=== PATIENT | male | born 1990 | race Caucasian/White ===

== ENCOUNTER 2023-01-11 14:33 | Emergency (ER) | payer OTHER, SELFPAY ==
[2023-01-11 14:38] VITALS: BP 134/84; PULSE 71; RESP 20; TEMP 36.8; O2SAT 100
--- NOTE | 2023-01-11 14:48 | ED.BACK ---
HPI - Back Pain/Injury General Chief Complaint: Back Pain/Injury Stated Complaint: pain in back shooting to right shoulder Time Seen by Provider: 01/11/23 14:48 History of Present Illness HPI Narrative: patient woke up with muscle strain to right shoulder/muscle. no neck pain full Rom of neck and shoulder. Patient has not taken anything for pain or discomfort. Patient thinks he may have slept wrong last night causing muscle strain. no chest pain no shortness of breath. Related Data Allergies Allergy/AdvReac Type Severity Reaction Status Date / Time No Known Allergies Allergy Unverified 08/28/17 19:34 Review of Systems Review of Systems: CONSTITUTIONAL: Denies fever, chills, or sweats. EYES: Denies visual changes, redness, or discharge. ENT: Denies rhinorrhea, congestion, sore throat, or otalgia. CARDIOVASCULAR: Denies chest pain, palpitations, or edema. RESPIRATORY: Denies cough or dyspnea. GASTROINTESTINAL: Denies abdominal pain, nausea, vomiting, or diarrhea. GENITOURINARY: Denies dysuria or hematuria. SKIN: Denies rash or itching. MUSCULOSKELETAL: Denies back pain, joint pain, or myalgia. NEUROLOGIC: Denies headache, numbness, or weakness. PSYCHIATRIC: Denies anxiety or depression. PMFSH Comments At time of signature, agree with nursing past medical, surgical, social and family history. There is no relevant family history pertinent to the presenting complaint Exam Narrative: GENERAL: Well-appearing, well-nourished, and in no acute distress. HEAD: Normocephalic, atraumatic. EYES: PERRLA and EOMI. ENT: Nares clear, no rhinorrhea or epistaxis. Mucous membranes moist. NECK: Supple. CHEST: Clear to auscultation. No respiratory distress. HEART: Regular rate and rhythm. No murmur heard. Normal peripheral pulses. ABDOMEN: Soft, nontender, nondistended, normal active bowel sounds. EXTREMITIES: Normal range of motion. No edema. T ENTERED EXAM ROOM WITH NO DIFFICULTY WITH AMBULATION. NO SIGNIFICANT RESTRICTIONS WITH FLEXION AND EXTENSION OF BACK. VERTEBRAE/SPINE NONTENDER TO PALPATION, NO STEP OFFS. MOTOR, STRENGTH INTACT. SENSATIONS GROSSLY INTACT OF LE. patient complains of pain below shoulder blade. SKIN: Warm, dry, no rash. NEURO: No focal deficits. Alert and oriented x3. Davida Coma Scale Eye Opening: Spontaneous 4 [place] Coma Scale Motor: Obeys Commands 6 [place] Coma Scale Verbal: Oriented 5 [place] Coma Scale Total 15 Back/Spine/Pelvis: Back: no CVA tenderness Extrem: General: normal to inspection, no clubbing, cyanosis or edema and no pedal edema Course Course Level of Care: Express Care Visit Vital Signs Vital signs: Vital Signs Temperature 36.8 C 01/11/23 14:38 Pulse Rate 71 01/11/23 14:38 Respiratory Rate 20 01/11/23 14:38 Blood Pressure 134/84 01/11/23 14:38 Pulse Oximetry 100 01/11/23 14:38 Oxygen Delivery Room Air 01/11/23 14:38 Temperature 36.8 C 01/11/23 14:38 Pulse Rate 71 01/11/23 14:38 Respiratory Rate 01/11/23 14:38 Blood Pressure 134/84 01/11/23 14:38 Pulse Oximetry 100 01/11/23 14:38 Oxygen Delivery Room Air 01/11/23 14:38 Discharge Plan Discharge Clinical Impression: Muscle strain Patient Disposition: Home, Self-Care Condition: Stable Instructions: Muscle Strain (DC) Additional Instructions: Medication as prescribed Heating pad and or ice for comfort Follow-up with primary care provider in the next 2-3 days for re-evaluation If any new worsening symptoms please call the emergency room immediately for further evaluation treatment Prescriptions: New prednisone 20 mg tablet 40 mg PO DAILY 5 Days Qty: 10 0RF ketorolac 10 mg tablet 10 mg PO TID PRN (Reason: pain) 3 Days Qty: 10 0RF lidocaine [Lidoderm] 5 % adhesive patch,medicated 1 patch topical DAILY Qty: 15 0RF Rx Instructions: leave on most painful area for up to 12 hrs Follow-up/Referrals: PHYSICIAN NOT ON STAFF,NONSTAF
== END 2023-01-11 14:53 | disposition home or self-care (01) ==
PROVIDERS: Emergency Provider Nurse Practitioner Family
DX: S46.911A Strain of unspecified muscle, fascia and tendon at shoulder and upper arm level, right arm, initial encounter (principal); X58.XXXA Exposure to other specified factors, initial encounter
CPT/HCPCS: 99203; G0463

== ENCOUNTER 2023-01-22 15:30 | Emergency (ER) | payer OTHER, SELFPAY ==
--- NOTE | 2023-01-22 15:42 | ED.DENTAL ---
HPI - Dental/Oral General Chief complaint: Dental/Oral Stated complaint: tooth pain Time Seen by Provider: 01/22/23 15:42 Source: patient and RN notes reviewed History of Present Illness HPI Narrative: Patient is a 32-year-old male who presents to urgent care with complaints of upper and lower dental pain. Patient states that it started last night on the upper and today on the lower. Patient does have a dentist appointment coming up with [facility] to have all of his teeth removed. Patient has been taking Tylenol and ibuprofen. Denies any fevers. No other acute complaints. No acute distress noted. Patient aware of the plan of care. Some parts of this dictation were generated by voice recognition software and may contain typographical and/or grammatical inaccuracies. Related Data Home Medications Medication Instructions Recorded Confirmed methylphenidate HCl 18 mg See Rx Instructions .Route .COMPLEX 01/22/23 01/22/23 tablet,extended release 24 hr methylphenidate HCl 27 mg See Rx Instructions .Route .COMPLEX 01/22/23 01/22/23 tablet,extended release 24 hr Allergies Allergy/AdvReac Type Severity Reaction Status Date / Time No Known Allergies Allergy Verified 01/11/23 15:00 Review of Systems Review of Systems: CONSTITUTIONAL: Denies fever, chills, or sweats. EYES: Denies visual changes, redness, or discharge. ENT: Denies rhinorrhea, congestion, sore throat, or otalgia. Reports of upper and lower right dental pain CARDIOVASCULAR: Denies chest pain, palpitations, or edema. RESPIRATORY: Denies cough or dyspnea. GASTROINTESTINAL: Denies abdominal pain, nausea, vomiting, or diarrhea. GENITOURINARY: Denies dysuria or hematuria. SKIN: Denies rash or itching. MUSCULOSKELETAL: Denies back pain, joint pain, or myalgia. NEUROLOGIC: Denies headache, numbness, or weakness. All other systems reviewed are negative, except as documented in HPI. PMFSH Comments At the time of my signature, I reviewed and agree with the nursing past medical, surgical, social, and family history. There is no relevant family history pertinent to the patient complaint. Exam Narrative: GENERAL: This is a well-nourished, well-developed patient, in no apparent distress. HEAD: normocephalic, atraumatic. EYES: PERRL. Sclera clear/white. Vision is grossly intact. EARS: External ears normal, NOSE: External nose normal with no obvious nasal discharge, nares without redness, no rhinorrhea. THROAT: Mucous membranes moist, posterior pharynx clear. DENTAL: Multiple carious lesions, avulsed dentition and very poor oral hygiene throughout with mild to moderate erythema/gingivitis NECK: Neck supple, non-tender without lymphadenopathy SKIN: warm, intact with no suspicious lesions or rash, good texture and turgor. NEURO: awake, alert, and oriented to person, place and time. There were no obvious focal neurologic abnormalities. EXTREMITIES: No clubbing, cyanosis, or edema. Course Course Level of Care: Express Care Visit Vital Signs Vital signs: Vital Signs Temperature 97.9 F 01/22/23 15:48 Pulse Rate 108 H 01/22/23 15:48 Respiratory Rate 16 01/22/23 15:48 Blood Pressure 135/85 01/22/23 15:48 Pulse Oximetry 100 01/22/23 15:48 Oxygen Delivery Room Air 01/22/23 15:48 Temperature 97.9 F 01/22/23 15:48 Pulse Rate 108 H 01/22/23 15:48 Respiratory Rate 16 01/22/23 15:48 Blood Pressure 135/85 01/22/23 15:48 Pulse Oximetry 100 01/22/23 15:48 Oxygen Delivery Room Air 01/22/23 15:48 Reviewed MDM - Dental/Oral MDM Narrative Medical decision making narrative: Advised patient to complete the oral antibiotic regimen as prescribed. Be sure to eat and drink with medication. Use Tylenol/ibuprofen as needed for pain or discomfort. May use a warm compress or ice to the face for swelling or discomfort. If he develops any increase in symptoms associated with severe facial swelling, nausea, vomiting or fever-go to the emergenc
[2023-01-22 15:48] VITALS: BP 135/85; PULSE 108; RESP 16; TEMP 36.6; O2SAT 100
== END 2023-01-22 16:05 | disposition home or self-care (01) ==
PROVIDERS: Emergency Provider Nurse Practitioner Family; PCP Nurse Practitioner Family
DX: K02.9 Dental caries, unspecified (principal); K04.7 Periapical abscess without sinus; K05.10 Chronic gingivitis, plaque induced
CPT/HCPCS: 99213; G0463

== ENCOUNTER 2025-05-23 09:10 | Emergency (ER) | payer OTHER, SELFPAY ==
--- NOTE | 2025-05-23 09:15 | ED_ITS ---
HPI - Dental/Oral General Chief complaint: Dental/Oral Stated complaint: Left side of face swollen Time Seen by Provider: 05/23/25 09:21 Source: patient, RN notes reviewed and old records reviewed Mode of arrival: ambulatory Limitations: no limitations History of Present Illness HPI Narrative: Patient sitting in exam room. Patient presents with left-sided facial swelling, very poor dentition. No treatment prior to arrival Related Data Home Medications ?Medication ?Instructions ?Recorded ?Confirmed ?Last Taken ?Type methylphenidate HCl 18 mg See Rx Instructions .Route .COMPLEX 01/22/23 01/22/23 Unknown History tablet,extended release 24 hr methylphenidate HCl 27 mg See Rx Instructions .Route .COMPLEX 01/22/23 01/22/23 Unknown History tablet,extended release 24 hr Allergies Allergy/AdvReac Type Severity Reaction Status Date / Time No Known Allergies Allergy Verified 01/11/23 15:00 Review of Systems 2 Review of Systems: All systems reviewed & are unremarkable except as noted in HPI and below Constitutional: Constitutional: Reports no additional constitutional complaints ENT: Reports as per HPI Cardiovascular: Cardiovascular: Reports no additional cardiovascular complaints, Denies chest pain and Denies dyspnea Respiratory: Respiratory: Reports no additional respiratory complaints, Denies chest congestion, Denies cough and Denies dyspnea Musculoskeletal: Musculoskeletal: Reports no additional musculoskeletal complaints Integumentary/Breasts: Skin/Breast: Reports system reviewed and no additional complaints, except as docu PMFSH Comments At the time of my signature, I reviewed and agree with the nursing past medical, surgical, social, and family history. There is no relevant family history pertinent to the patient complaint. Exam 2 Const: General: cooperative, comfortable, no acute distress, well developed, alert and well nourished Nutritional Appearance: well nourished O rientation/consciousness: patient oriented x3 Limitations: no limitations HENMT: Head: normal to inspection Head images: 1. Swelling noted without erythema. Ears: hearing grossly normal bilaterally, external ears normal, TM's normal bilaterally, EAC's normal, mastoids normal and no periauricular adenopathy T eeth and gingiva: gingiva abnormal edematous and poor dentition (Multiple decayed teeth on the left side) Eyes: General: appearance normal, both eyes and all related structures A lignment and Position: alignment normal Neck: Neck: normal visual inspection, full ROM, no lymphadenopathy and no meningeal signs Chest: Chest palpation & inspection: normal inspection of the chest Resp: Effort & Inspection: normal respiratory effort and able to speak in complete sentences Cardio: Rate: regular rate Skin: General skin exam: normal color and no rashes or lesions noted Neuro: General: patient oriented x3, gait normal, moves all extremities and no meningeal signs Cognition (Neuro): normal cognition Speech: normal speech Gait exam (Neuro): Normal gait present Extrem: General: normal to inspection, full ROM, capillary refill normal and normal gait Psych: Appearance: grossly normal and well kempt Mental Status: mental status grossly normal Speech and movement: Normal speech and movement present and Clear speech present Affect: normal affect Attitude: cooperative Course Course Level of Care: Express Care Visit Vital Signs Vital signs: Vital Signs Temperature 98.2 F 05/23/25 09:20 Pulse Rate 100 05/23/25 09:20 Respiratory Rate 16 05/23/25 09:20 Blood Pressure 121/93 H 05/23/25 09:20 Pulse Oximetry 98 05/23/25 09:20 Oxygen Delivery Room Air 05/23/25 09:20 Temperature 98.2 F 05/23/25 09:20 Pulse Rate 100 05/23/25 09:20 Respiratory Rate 16 05/23/25 09:20 Blood Pressure 121/93 H 05/23/25 09:20 Pulse Oximetry 98 05/23/25 09:20 Oxygen Delivery Room Air 05/23/25 09:20 Reviewed MDM - Dental/Oral MDM Narrative Medical decision making narrative: Patient sitting in exam room. Patient is nontoxic, vitals stable. Patient with very poor dentition, left-sided facial swelling. Most likely facial swelling stemming from the dental infection. Patient is appropriate for outpatient treatment with close follow-up. Discussed in great detail signs and symptoms proceed to the emergency room which patient verbalized understanding Discharge instructions reviewed with patient, as well as provided in writing per nursing staff. The instructions also include specific and strict return/GO TO THE ER as well as f/u information. All questions have been answered, and the patient deny any further questions with discharge and discharge plan. Some parts of this dictation were generated by voice recognition software and may contain typographical and/or grammatical inaccuracies. Differential Diagnosis Differential diagnosis: Likely gingival abscess, dental caries, toothache and dental abscess Critical Care Time Critical Care Time Critical Care Time: No Discharge Plan Discharge Clinical Impression: Dental decay, Dental infection Patient Disposition: Home Condition: Stable Instructions: Antibiotic Form, Dental Abscess (ED) Additional Instructions: Finish the entire course of antibiotics & use a good mouthwash several times a day After every time you eat be sure to use salt water rinses. Apply ice to face to help with pain and swelling Take Tylenol 650mg alternating with Motrin 600mg as needed for pain. You can alternate every 4 hours You need to follow-up with a dental provider as soon as possible for further evaluation and treatment. A list of dental providers has been given to you Follow up with a Primary Care Provider (PCP) about medical needs. A PCP can help keep you healthy by preventive medicine and screening. Go to the ER for New or worsening symptoms. Patient Language: Hong Konger Prescriptions: New amoxicillin-pot clavulanate 875-125 mg tablet 1 tablet PO Q12H Qty: 20 0RF No Action methylphenidate HCl 18 mg tablet extended release 24hr See Rx Instructions .ROUTE .COMPLEX Rx Instructions: as prescribed methylphenidate HCl 27 mg tablet extended release 24hr See Rx Instructions .ROUTE .COMPLEX Rx Instructions: as prescribed ibuprofen 800 mg tablet 800 mg PO TID PRN (Reason: pain) Qty: 60 0RF chlorhexidine gluconate 0.12 % mouthwash 15 ml buccal BID Qty: 118 0RF Follow-up/Referrals: Kev,Ayleen Gutierrez, DIRECTOR DECISION SUPPORT [Primary Care Provider] - 1 Week (express care follow up ) Stand Alone Forms: Work/School Release IP Time of Disposition: 09:29
--- OUTSIDE RECORDS SUMMARY | 2025-05-23 09:16 | XMS_ITS | Clinical Summary ---
Author Organization [facility] Address [address] [place] [address] Care Team Providers Care C S S Representative Name Role Phone Ayleen Angulo NP Primary Care Provider [phone] Allergies No known active allergies Medications dextroamphetam ine-amphetamin e (ADDERALL) 20 mg tablet Take 1 tablet (20 mg total) by mouth daily as needed (early afternoon) 30 tablet 05/20/20 25 Active dextroamphetam ine-amphetamin e XR (ADDERALL XR) 20 mg 24 hr capsule Take 1 capsule (20 mg total) by mouth every morning 30 capsule 05/20/20 25 Active dextroamphetam ine-amphetamin e XR (ADDERALL XR) 20 mg 24 hr capsule Take 1 capsule (20 mg total) by mouth every morning 30 capsule 03/29/20 25 025 Discontinued(Re order) dextroamphetam ine-amphetamin e (ADDERALL) 20 mg tablet Take 1 tablet (20 mg total) by mouth daily as needed (early afternoon) 30 tablet 03/29/20 25 025 Discontinued(Re order) dextroamphetam ine-amphetamin e XR (ADDERALL XR) 20 mg 24 hr capsule Take 1 capsule (20 mg total) by mouth every morning 30 capsule 04/28/20 25 025 Discontinued(Re order) dextroamphetam ine-amphetamin e (ADDERALL) 20 mg tablet Take 1 tablet (20 mg total) by mouth daily as needed (early afternoon) 30 tablet 04/28/20 25 025 Discontinued(Re order) dextroamphetam ine-amphetamin e XR (ADDERALL XR) 20 mg 24 hr capsule Take 1 capsule (20 mg total) by mouth every morning 30 capsule 05/18/20 25 025 Discontinued dextroamphetam ine-amphetamin e (ADDERALL) 20 mg tablet Take 1 tablet (20 mg total) by mouth daily as needed (early afternoon) 30 tablet 05/18/20 025 Discontinued Active Problems Problem Noted Date Diagnosed Date Attention deficit hyperactiv ity disorder (ADHD), combined type 01/11/2022 Assessment & Plan (02/11/2025 9:06 AM CDT): Not at goal on Vyvanse. Will switch back to Adderall but trial XR with IR in the early afternoon. If not at goal still with new adjustment, may need to start considering specialist for medication management. Assessment & Plan (01/14/2025 8:55 AM CDT): Adderall not as effective as it once was, having difficulty with the consistent BID dosing. Will switch to Concerta, long acting 36 mg and short acting in the early afternoon. Pt aware this is not an apples to apples switch so update me in a couple weeks on possibly adjustments. Follow up in 4 weeks. Assessment & Plan (07/14/2024 9:07 AM CDT): Notices the morning dose takes a little while to kick in. Discussed taking it first thing in the morning on empty stomach, may be taking it too close to the time he is needing it to begin working. Will continue the Adderall 20 mg BID. Assessment & Plan (01/21/2024 8:34 AM CDT): Patient's psychiatrist unexpectedly. I will take over his Adderall rx, he has been stable on the 20 mg BID. Will refill when he is due in approximately 1 week. Assessment & Plan (09/16/2022 8:27 AM SAW FEEDER): Discussed continuing follow up with Dr. Lester. He will touch base with his office and make his follow up appointment while continuing the Concerta 37 mg daily. Assessment & Plan (05/31/2022 9:08 AM CDT): Stable on the Concerta 27 mg Has initial appt with Psych in August. Will continue current dosage and follow up in 6 months, refill sent. Assessment & Plan (04/03/2022 2:19 PM CDT): Stable on the Concerta 18 mg, no side effects noted. Patient has not heard from psych so information was provided to patient from the referral placed at last visit. He will be getting appointment set up. Concerta refill sent. Assessment & Plan (02/08/2022 12:12 PM CDT): Only lasting about 4 hours, will increase to 20 mg daily and switch to long acting. Referral to Psych placed. F/U in 6 weeks. Assessment & Plan (01/11/2022 12:10 PM SAW FEEDER): Patient was diagnosed and treated for this by psychiatrist in [place] about 5-6 years ago. He was prescribed Ritalin 10 mg daily. He has prescription bottle in office today but has not been on the medication for the 5-6 years. Will restart at 10 mg daily of Ritalin and get records from prior office. Follow up in 1 month. Encounters Date Type Department Care Team Description 03/08/2025 Orders Only [facility] Primary Care at [address] [id number] Ayleen Angulo, PHYLLIS 03/08/2025 Orders Only [facility] Primary Care at [address] [id number] Ayleen Angulo, MOTORCYCLE REPAIRER Mass of joint of left wrist (Primary Dx) 02/22/2025 Orders Only [facility] Primary Care at [address] [id number] Ayleen Angulo, MOTORCYCLE REPAIRER from Last 3 Months Immunizations Immunization Administration Dates Next Due Influenza, Trivalent, Recomb inant, Egg Free, Preservative Free, Antibiotic Free, IM (FLUBLOK) 08/17/2024 Influenza, Unspecified 11/03/2023(Deferr ed: Patient Refused),11/03/2022(Deferred: Patient Refused),09/16/2022(Deferred: Patient Refused),01/11/2022(Deferred: Patient Refused),09/16/2021(Deferred: Patient Refused) Tdap 08/17/2024 Medical History Medical History Date Comments ADHD (attention deficit hyperactivity disorder) 2441-9911 History of chicken pox Family History Medical History Relation Name Comments Heart attack Father Emile roca Stroke Father Emile roca Relation Name Status Comments Father Emile roca Alive Mother Alive Social History Tobacco Use Types Packs/Day Years Used Date Smoking Tobacco: Former Cigarettes 0.8 12 0 11/03/2006 - 11/02/2018 Smokeless Tobacco: Never Tobacco Cessation:Counseling Given: Not Answered AUDIT-C Answer Date Recorded Q1: How often do you have a drink containing alcohol? Never 01/14/2025 Q2: How many drinks containi ng alcohol do you have on a typical day when you are drinking? Patient does not drink Q3: How often do you have si x or more drinks on one occasion? Never 01/14/2025 PHQ-2 Answer Date Recorded PHQ-2 Total Score (If total score is 3 or more points, staff should administer the PHQ-9) 0 02/11/2025 Sex and Gender Information Value Date Recorded Sex Assigned at Not on file Legal Sex Male 1:55 PM SAW FEEDER Gender Identity Not on file Sexual Orientation Not on file Obstetrics History Last Filed Vital Signs Vital Sign Reading Time Taken Comments Blood Pressure 124/90 01/14/2025 8:17 AM CDT Pulse 100 01/14/2025 8:17 AM CDT Temperature 36.7 C (98 F) 01/14/2025 8:17 AM CDT Respiratory Rate 16 01/14/2025 8:17 AM CDT Oxygen Saturation 98% 01/14/2025 8:17 AM CDT Inhaled Oxygen Concentration - - Weight 84.4 kg (186 lb) 02/11/2025 8:35 AM CDT Height 180.3 cm (5' 11) 02/11/2025 8:35 AM CDT Body Mass Index 25.94 02/11/2025 8:35 AM CDT Plan of Treatment Health Maintenance Due Date Last Done Comments Hepatitis C Screening 1991 Hepatitis B Screening 2009 Regular Well Visit/Exam 18-64 2009 Covid-19 Vaccine ( season) 2024 05/20/2021, 04/22/2021 Influenza Vaccine (#1) 2025 08/17/2024 Depression Screening 02/11/2026 02/11/2025, 01/14/2025, 07/14/2024, Additional history exists DTaP/Tdap/Td Vaccine (2 - Td or Tdap) 08/17/2034 08/17/2024 HPV Vaccines Aged Out No longer eligi ble based on patient's age to complete this topic Pneumococcal vaccine <65 Aged Out No longer eligible based on patient's age to complete this topic Insurance [employer] [place] Care Teams C S S Representative Relationship Specialty Start Date End Date Ayleen Angulo NP PCP - General Family Medicine 01/11/22
--- OUTSIDE RECORDS SUMMARY | 2025-05-23 09:16 | XMS_ITS | Referral Summary ---
Author Organization [facility] Building [facility] Address [address] [place] [address] Care Team Providers Care Threshing Machine Operator Name Role Phone Ayleen Angulo NP Primary Care Provider [phone] Encounters Date Type Department Care Team Description 03/08/2025 Orders Only [facility] Primary Care at [address] [phone] Ayleen Angulo NP 03/08/2025 Orders Only [facility] Primary Care at [address] [phone] Ayleen Angulo NP Mass of joint of left wrist (Primary Dx) 02/22/2025 Orders Only [facility] Medical [facility] Primary Care at [address] [address] Ayleen Angulo NP from Last 3 Months Allergies No known active allergies Medications dextroamphetam [...] mouth every morning 30 capsule 03/29/20 25 06/25/2 025 Discontinued(Re order) dextroamphetam ine-amphetamin e (ADDERALL) [...] week. Assessment & Plan (09/16/2022 8:27 AM QUALITY CONTROL MICROBIOLOGIST): Discussed continuing follow up with Dr. Lester. [...] weeks. Assessment & Plan (01/11/2022 12:10 PM QUALITY CONTROL MICROBIOLOGIST): Patient was diagnosed and treated for this by psychiatrist in [place] about 5-6 years ago. He was prescribed Ritalin 10 mg daily. He has prescription bottle in office today but has not been on the medication for the 5-6 years. Will restart at 10 mg daily of Ritalin and get records from prior office. Follow up in 1 month. Immunizations Immunization Administration Dates Next Due Influenza, Trivalent, Recomb inant, Egg Free, Preservative Free, Antibiotic Free, IM (FLUBLOK) 08/17/2024 Influenza, Unspecified 11/03/2023(Deferr ed: Patient Refused),11/03/2022(Deferred: Patient Refused),09/16/2022(Deferred: Patient Refused),01/11/2022(Deferred: Patient Refused),09/16/2021(Deferred: Patient Refused) Tdap 08/17/2024 Social History Tobacco Use Types Packs/Day Years [...] on file Legal Sex Male 1:55 PM QUALITY CONTROL MICROBIOLOGIST Gender Identity Not on file Sexual Orientation Not on file Last Filed Vital Signs Vital Sign Reading [...] 02/11/2025 8:35 AM CDT Plan of Treatment Not on file Insurance [employer] [place] Care Teams Threshing Machine Operator Relationship Specialty Start Date End Date Ayleen Angulo NP PCP - General Family Medicine 01/11/22
[2025-05-23 09:20] VITALS: BP 121/93; PULSE 100; RESP 16; TEMP 36.8; O2SAT 98
== END 2025-05-23 09:35 | disposition home or self-care (01) ==
PROVIDERS: Emergency Provider Nurse Practitioner; PCP Nurse Practitioner Family
DX: K02.9 Dental caries, unspecified (principal); K04.7 Periapical abscess without sinus
CPT/HCPCS: 99213; G0463